=== PATIENT | male | born 2000 | race Caucasian/White ===

== ENCOUNTER 2023-01-28 21:27 | Emergency (ER) | payer MEDICAID, SELFPAY ==
[2023-01-28 21:30] VITALS: BP 129/95; PULSE 80; RESP 16; TEMP 36.8; O2SAT 100
[2023-01-28 22:10] LABS: Basophils Absolute Auto 0.1 K/mm3 (0.0-0.1); Basophils Percent Auto 0.6 % (0.2-1.2); Eosinophils Absolute Auto 0.2 K/mm3 (0-0.3); Eosinophils Percent Auto 2.2 % (0-4.4); Hemoglobin 16.7 g/dL (14.0-18.0); Immature Granulocyte Absolute 0.01 K/mm3 (0.00-0.031); Immature Granulocyte Percent A 0.1 % (0-0.5); Lymphocytes Percent Auto 27.5 % (18.3-44.2); Mean Corpuscular HGB Conc 34.8 g/dl (32-36); Mean Corpuscular Hemoglobin 31.3 pg (26-34); Mean Corpuscular Volume 89.9 fl (80-100); Mean Platelet Volume 10.7 fl (7.4-10.4); Monocytes Absolute Auto 0.8 K/mm3 (0.1-0.6); Monocytes Percent Auto 8.6 % (2.6-8.5); Neutrophils Absolute Auto 5.3 K/mm3 (1.3-6.7); Platelet Count Result 252 k/mm3 (150-375); Red Blood Count 5.34 M/mm3 (4.6-6.20); Red Cell Distribution Width 12.9 % (11.5-14.5); White Blood Count 8.7 K/mm3 (4.5-10.0)
[2023-01-28 22:11] LABS: Appearance Urine Clear (Clear); Bilirubin Urine Negative (Negative); Blood Urine Negative (Negative); Color Urine Yellow (Yellow); Glucose Urine UA Negative (Negative); Ketones Urine Trace mg/dL (Negative); Leukocyte Esterase Ur Negative LEU/UL (Negative); Nitrate Urine Negative (Negative); Protein Urine Negative (Negative); Specific Grav Ur 1.022 (1.001-1.035); pH Urine 7.5 (5.0-9.0)
[2023-01-28 22:12] LABS: Add Urine Microscopic? NO
[2023-01-28 22:21] LABS: Alanine Aminotransferase 18 U/L (6-50); Albumin Level 4.5 g/dL (3.5-5.1); Alkaline Phosphatase 68 U/L (38-126); Anion Gap 8 mmol/L (8-16); Aspartate Amino Transferase 23 U/L (17-59); Bilirubin,Total 0.5 mg/dL (0.2-1.3); Blood Urea Nitrogen 14 mg/dL (9-20); Calcium 8.9 mg/dL (8.4-10.2); Carbon Dioxide 25 mmol/L (22-30); Chloride 105 mmol/L (98-107); Estimated CRCL calculation 103 ml/min; Estimated Glomerular Filt Rate > 60; Glucose 91 mg/dL (65-110); Potassium 3.8 mmol/L (3.4-5.0); Sodium 138 mmol/L (137-145)
[2023-01-28 22:22] LABS: Ethanol < 10 mg/dL (<10)
[2023-01-28 22:28] LABS: Barbiturate Screen Urine Negative (Negative); Benzodiazepines Screen Urine Negative (Negative)
[2023-01-28 22:58] LABS: Amphetamine Screen Urine Negative (Negative); Cannabinoid Screen Urine Negative (Negative); Cocaine Screen Urine Negative (Negative); Methadone Screen Urine Negative (Negative); Opiate Screen Urine Negative (Negative); Phencyclidine Screen Urine Negative (Negative)
[2023-01-28 22:59] LABS: Thyroid Stimulating Hormone 0.167 uIU/mL (0.465-4.680)
--- NOTE | 2023-01-28 23:22 | PC.NURSE ---
Per EDP Zych, pt is medically cleared at this time.
--- NOTE | 2023-01-29 00:30 | ED.GENADULT ---
HPI - General Adult General Chief complaint: Psychiatric Symptoms Stated complaint: PSYCH EVAL, SI w/PLAN Time Seen by Provider: 01/28/23 21:49 History of Present Illness HPI narrative: this is a 22-year-old male with history of bipolar disorder, ADHD and anxiety presenting for SI. Patient states he wants to kill himself because he is constantly get in arguments with his mother. She has recently kicked him out of the house. He feels like she does not understand him. He said that he wanted to drive his car the 90 [address] then turn into traffic. He denies homicidal ideation or hallucinations. Denies use of drugs or alcohol. He does not have access to a firearm. He reached stopped his psych medication 2 years ago at the request of his physician. Related Data Allergies Allergy/AdvReac Type Severity Reaction Status Date / Time No Known Allergies Allergy Verified 01/29/23 15:04 [facility] Past Medical History Medical History Bipolar 1 disorder Psychiatric illness Social History Social History Substance use type: does not use Exam Narrative: APPEARANCE: patient makes poor eye contact, he is speaking quietly Head: atraumatic. EYES: EOMI, NOSE: Atraumatic NECK: Trachea midline RESPIRATORY: No increased rate of breathing CTAB CARDIOVASCULAR: RRR, ABDOMINAL: Non-distended MUSCULOSKELETAl: No obvious deformities NEURO: Alert. Moving 4/4 extremities SKIN:: Warm, dry. Normal color PSYCHIATRIC: Normal affect Course Course Emergency Course: 0700 Zych: patient was signed out to the oncoming physician pending placement into a psychiatric facility. Vital Signs Vital signs: Vital Signs Temperature 98.3 F 01/28/23 21:30 Pulse Rate 80 01/28/23 21:30 Respiratory Rate 16 01/28/23 21:30 Blood Pressure 129/95 H 01/28/23 21:30 Pulse Oximetry 100 01/28/23 21:30 Oxygen Delivery Room Air 01/28/23 21:30 Temperature 97.9 F 01/29/23 07:21 Pulse Rate 62 01/29/23 15:04 Respiratory Rate 16 01/29/23 15:04 Blood Pressure 127/66 01/29/23 15:04 Pulse Oximetry 100 01/29/23 15:04 Oxygen Delivery Room Air 01/28/23 21:30 Medical Decision Making MDM Narrative Medical decision making narrative: -Presentation: 22-year-old male presenting with suicidal ideation with plan. -DDX includes but is not limited to: Suicidal ideation, depression, anxiety -Co-morbidities complicating care: bipolar disorder, anxiety, ADHD -Social determinants of health: patient was recently kicked out of his house by his family. He is unemployed. -External Chart Review: none -Hx from independent Sources: EMS -Discussion of Management/Consultants: crisis Center -Independent interpretation of studies: TSH was 0.167. The rest was lab work is within normal limits. Dx tests considered but not ordered: None -Procedures: none -Interventions: none -Shared decision making / Disposition: Patient is medically cleared for psychiatric evaluation/admission/transport. -RX Vital Signs Vital Signs: Vital Signs Temperature 98.3 F 01/28/23 21:30 Pulse Rate 80 01/28/23 21:30 Respiratory Rate 16 01/28/23 21:30 Blood Pressure 129/95 H 01/28/23 21:30 Pulse Oximetry 100 01/28/23 21:30 Oxygen Delivery Room Air 01/28/23 21:30 Temperature 97.9 F 01/29/23 07:21 Pulse Rate 62 01/29/23 15:04 Respiratory Rate 16 01/29/23 15:04 Blood Pressure 127/66 01/29/23 15:04 Pulse Oximetry 100 01/29/23 15:04 Oxygen Delivery Room Air 01/28/23 21:30 Lab Data 01/28/23 21:56 01/28/23 21:56 Labs: Lab Results 01/28/23 01/29/23 Range/Units 21:56 00:40 WBC 8.7 (4.5-10.0) K/mm3 RBC 5.34 (4.6-6.20) M/mm3 Hgb 16.7 (14.0-18.0) g/dL Hct 48.0 (42.0-52.0) % MCV 89.9 (80-100) fl MCH 31.3 (26-34) pg MCHC 34.8 (32-36
[2023-01-29 01:20] LABS: Influenza A QL RT-PCR Negative (Negative); Influenza B QL RT-PCR Negative (Negative); RSV RNA, RT-PCR Negative (Negative); SARS-CoV-2 RNA PCR Negative (Negative)
--- NOTE | 2023-01-29 04:04 | PC.NURSE ---
added on Tylenol and salicylate level
--- NOTE | 2023-01-29 04:16 | PC.NURSE ---
Pt is vaccinated for COVID-19
[2023-01-29 04:45] LABS: Acetaminophen < 10 ug/mL (10-30); Salicylate < 1.0 mg/dL (2-20)
--- NOTE | 2023-01-29 05:29 | PC.NURSE ---
Pt accepted to [facility] by Dr. Velasco. Pt does not have a bed assignment yet, and facility wont have discharges until this afternoon.
--- NOTE | 2023-01-29 06:17 | PC.NURSE ---
Pt accepted to [facility]. No bed yet, but facility will call back with bed number and accepting physician when available.
[2023-01-29 07:21] VITALS: BP 101/61; PULSE 56; RESP 15; TEMP 36.6; O2SAT 99
--- NOTE | 2023-01-29 07:21 | PC.NURSE ---
Assumed care of pt, pt is alert to verbal stimuli, resting on stretcher w/ lights dimmed. Sitter at bedside. Ordered breakfast tray for pt at this time.Discussed POC.
--- NOTE | 2023-01-29 08:59 | PC.NURSE ---
Mel from [facility] on phone w/ pt at this time to discuss potential for admit/acceptance. Yusuf on phone, spoke to Ariela requesting update on pt. Will continue to seek placement.
--- NOTE | 2023-01-29 10:19 | PC.NURSE ---
This RN called Elda at [phone] (pts mother) per pt request to notify her he is here. Requesting we give updates on POC for pt. Pt gave verbal consent.
--- NOTE | 2023-01-29 12:12 | PC.NURSE ---
Report given to [place] [place]
[2023-01-29 15:04] VITALS: BP 127/66; PULSE 62; RESP 16; O2SAT 100
== END 2023-01-29 15:16 ==
PROVIDERS: Emergency Provider Emergency Medicine
DX: F32.A Depression, unspecified (principal); Z20.822 Contact with and (suspected) exposure to COVID-19
CPT/HCPCS: 36415; 80053; 80307; 81003; 84443; 85025; 87637; 99285